=== PATIENT | male | born 1995 | race Caucasian/White ===

== ENCOUNTER 2025-05-21 09:55 | Emergency (ER) | payer MEDICAID, SELFPAY ==
[2025-05-21 09:57] VITALS: BMI 22.5
[2025-05-21 10:04] VITALS: BP 114/79; PULSE 122; RESP 21; TEMP 36.5; O2SAT 96; BMI 22.5
--- NOTE | 2025-05-21 10:15 | PD.EDADULT ---
ED General RME/HPI General Chief complaint: Skin/Abscess/Foreign Body Stated complaint: RASH Time Seen by Provider: 05/21/25 10:22 Arrival date/time: 05/21/25 09:55 CC: Itchy hives HPI ongoing for the past 2 weeks intermittent in nature they transition from 1 time to another over the last 36 hours they have got exposure to his buttocks and his anterior thighs as well as abdomen and back. Onset approximately 2 weeks ago has been seen by 2 urgent care center was thought it was ringworm and started on creams which have not helped and has started on Benadryl which also has not helped. Denies any exposure to new soaps colognes or new chemicals that is aware of currently is on vacation from [place]. Patient has no face or oral but does have scalp involvement. Patient has no allergies to medicines. Related Data Previous Rx's ?Medication ?Instructions ?Recorded famotidine 20 mg tablet 20 mg PO QDAY #20 tabs 05/21/25 prednisone 20 mg tablet See Taper PO BID #10 tabs 05/21/25 Allergies Allergy/AdvReac Type Severity Reaction Status Date / Time No Known Allergies Allergy Verified 05/21/25 09:56 Review of Systems Review of Systems Narrative Review of Systems: GEN: No fever, no chills, no weight loss EYES: No discharge, no visual changes, no pain HEENT: No ear pain, no congestion, no sore throat PULM: No shortness of breath, no cough, no congestion CV: No chest pain, no dyspnea on exertion, no palpitations GI: No nausea, no vomiting, no diarrhea, no pain, no constipation : No frequency, no urgency, no dysuria MUSC/SKEL: No joint pain, no back pain SKIN:hivesNo rash PSYCH: No hallucinations, no depression HEME/LYMPH: No easy bleeding or bruising tendencies NEURO: No weakness, no headache Past Medical History Social History SMOKING STATUS: Never smoker ED Exam Narrative Physical exam: [General: Not in any acute distress Head normocephalic HEENT: Eyes pupils are PERRLA EOMs are intact mouth pink moist membranes uvula is midline swallow symmetrical phonation is normal no stridor with auscultation. No lymphadenopathy all of the substance of HEENT are within acceptable limits Neck is supple nontender Chest equal chest rise nontender to palpation Respiratory: Clear to auscultation no wheezes crackles or rubs CV: Rate rhythm is regular no murmurs rubs or clicks Abdomen is soft nontender no masses positive bowel sounds all 4 quadrants Back: No CVA tenderness no spinous process tenderness from cervical spine thoracic and lumbar spine Skin: Nondescript irregular hives from 1 cm in diameter to 15 cm in diameter, surrounding erythema, multiple areas of macular erythema. Scalp involvement no face or circumoral involvement. Otherwise skin is intact no petechiae rash induration ulceration or crepitus Extremities: Moving all extremity against resistance cap refill less than 2 seconds neurosensory intact Neuro: Awake alert oriented x3 Glascow coma 15 no focal deficits] Course Course Course Narrative: Just prior to medication administration patient had a syncopal episode while getting up to urinate, no prior history of similar events states he just suddenly got lightheaded and dizzy became unresponsive for approximately 4 to 5 seconds and then responsive again at this time I elected to lay him flat started on IV him a liter of fluid pressures were noted to be in the 90s heart rate remained in the 60s. Laboratory results showed a mild leukocytosis of 14.6, no other significant electrolyte imbalances. At 1124 after liter fluid patient is sitting upright smiling and ambulating without complication pressures are now stabilized in the 110 range. I am comfortable giving the patient a Decadron and discharging home. The patient is in agreement with this plan. They agreed to take the medications. Quality Measures none Orders Category Date Time Status EKG (ED ONLY) *Do not use* NOW Care 05/21/25 10:40 Completed Saline [Insert IV] NOW Care 05/21/25 10:33 Active EKG (ED Only) Stat Exams 05/21/25 10:40 Draft CBC Stat Lab 05/21/25 10:36 Completed CMP [Comprehensive Metabolic Panel] Stat Lab 05/21/25 10:36 Completed Dexamethasone Inj [Decadron Inj] Med 05/21/25 10:15 Discontinued 10 mg IM X1 ONE Famotidine [Pepcid] Med 05/21/25 10:15 Discontinued 40 mg PO X1 ONE Sodium Chloride 0.9% 1000 ml [Ns] 1,000 ml Med 05/21/25 10:33 Active IV 999 mls/hr Vital Signs Vital signs: Vital Signs Temperature 97.7 F 05/21/25 10:04 Pulse Rate 122 H 05/21/25 10:04 Respiratory Rate 21 H 05/21/25 10:04 Blood Pressure 114/79 05/21/25 10:04 Pulse Oximetry (%) 96 05/21/25 10:04 Oxygen Delivery Method Room Air 05/21/25 10:04 Discharge Plan Plan Patient Disposition: HOME (Self Care) Prescriptions/Referrals Prescriptions/Med Rec: New prednisone 20 mg tablet See Taper PO BID Qty: 10 0RF Taper: Prednisone Taper 20 mg DAILY for 2 Days and 0 Hour 10 mg DAILY for 2 Days and 0 Hour 5 mg DAILY for 7 Days and 0 Hour famotidine 20 mg tablet 20 mg PO QDAY Qty: 20 0RF Problem List Clinical Impression: Angioedema, Syncope Patient/Caregiver Discharge Instructions Other Activity Instructions:: Continue to take the Benadryl 1 every 8 hours, take all the medications as prescribed, if there is a worsening of symptoms spite of medications return the emergency room immediately for further evaluation. Follow-up with your primary care provider, take a diary of how and when these hives change. If there are any hives that appear in your mouth or around your mouth return immediately to emergency room for evaluation. Please make sure you take all medications until completely gone. Education Materials: Causes of Syncope, ED Angioedema Print Language: Greek Stand Alone Forms: Dorothy Award Info., Work/School Release, Patient Portal Info Letter PA/GAIL Supervising Physician PA/GAIL Supervising Physician: Anders Wetzel ENP MDM Medication Administration(s) Medication Administration History Sodium Chloride (Ns) 1,000 mls @ 999 mls/hr IV .Q1H1M ONE Stop: 05/21/25 11:33 Last Admin: 05/21/25 10:39 Dose: 999 mls/hr Documented By: DMITRI Discontinued Medications Dexamethasone Sodium Phosphate (Dexamethasone Sod Phos Inj 10 Mg/Ml Vial) 10 mg IM X1 ONE Stop: 05/21/25 10:16 Last Admin: 05/21/25 10:47 Dose: Not Given Documented By: DMITRI Non-Admin Reason: Change of Condition Famotidine (Famotidine 20 Mg Tablet) 40 mg PO X1 ONE Stop: 05/21/25 10:16 Last Admin: 05/21/25 10:47 Dose: Not Given Documented By: DMITRI Non-Admin Reason: Change of Condition I suspect that is angioedema of unknown origin this been ongoing for the past 2 weeks, the patient has not had any medications other than Benadryl and fungal medication as it was initially diagnosed as ringworm. Patient confirms that this has been transitioning disappear in 12 hours and read a pill as well. Patient denies any of the typical changes such as new soaps colognes body washes shampoos new furniture. Patient is advised to take all medication as prescribed if is worsening of symptoms in spite of the medications return immediately to the emergency room for reevaluation. Diagnosis Differential diagnosis: Angioedema Dispositon Disposition: Discharge Home
[2025-05-21 10:39] VITALS: BP 98/64; PULSE 68; RESP 19; O2SAT 97
[2025-05-21] MEDS: SODIUM CHLORIDE 0.9% 1000 ML 1,000 ML 999 ML IV (10:39)
--- NOTE | 2025-05-21 10:40 | EKG_ITS ---
[facility] Test Date: 2025-05-21 Pat Name: GHAZAL KELLY Department: Room: - Gender: Male [employer]: : 1995 Requested By: Anders Dumont Order Number: [id number] Reading MD: Anders Dumont Measurements Intervals Sargents Rate: 65 P: 66 HI: 125 QRS: 79 QRSD: 94 T: 59 QT: 355 QTc: 370 Interpretive Statements SINUS RHYTHM EARLY REPOLARIZATION [ST ELEVATION WITH NORMALLY INFLECTED T-WAVE] No previous ECG available for comparison /[id number]/[email or web address]/[id number]
[2025-05-21 10:51] LABS: Basophils # (Auto) 0.0 Thou/mm3 (0.0-0.2); Basophils % (Auto) 0 % (0-2.5); Eosinophils # (Auto) 0.1 Thou/mm3 (0.0-0.5); Eosinophils % (Auto) 1 % (0-10); Hematocrit 49.9 % (41.0-53.0); Hemoglobin 16.8 g/dL (13.5-16.0); Immature Granulocytes Auto 0.08 Thou/mm3 (0.00-0.00); Lymphocytes # (Auto) 2.6 Thou/mm3 (1.0-4.8); Lymphocytes % (Auto) 18 % (10-50); Mean Corpuscular HGB Conc 33.7 g/dl (31.0-37.0); Mean Corpuscular Hemoglobin 30.6 pg (25.0-35.0); Mean Corpuscular Volume 91 fL (80-100); Monocytes # (Auto) 1.3 Thou/mm3 (0.0-0.8); Monocytes % (Auto) 9 % (0-12); Neutrophils # (Auto) 10.6 Thou/mm3 (1.8-7.7); Neutrophils % (Auto) 72 % (37-80); Nucleated Red Blood Cell # 0.00 Thou/mm3 (0.00-0.00); Nucleated Red Blood Cell % 0 /100 WBC (0); Platelet Count 394 Thou/mm3 (140-440); RDW Standard Deviation 41.1 fL (35.1-43.9); Red Blood Count 5.49 Miln/mm3 (4.50-5.90); White Blood Count 14.8 Thou/mm3 (3.8-10.6)
[2025-05-21 11:06] LABS: Alanine Aminotransferase 19 U/L (10-49); Albumin, Serum 4.3 gm/dL (3.5-5.0); Albumin/Globulin Ratio 1.5 (1.2-2.2); Alkaline Phosphatase 71 U/L (46-116); Anion Gap 11 (7-16); Aspartate Amino Transferase 24 U/L (0-34); BUN/Creatinine Ratio 15 Ratio (12-20); Bilirubin,Total 0.5 mg/dL (0.3-1.2); Blood Urea Nitrogen 17 mg/dL (9-23); Calcium 9.7 mg/dL (8.3-10.6); Calcium (Corrected) 9.7 mg/dL (8.5-10.1); Carbon Dioxide 24.8 mMol/L (20.0-31.0); Chloride 105 mMol/L (98-107); Creatinine (Component) 1.1 mg/dL (0.6-1.3); Estimated Creatinine Clearance 114.4 mL/min (>60); Globulin 2.8 gm/dL (2.3-3.5); Glucose 123 mg/dL (74-106); Osmolality,Calculated 283 (275-295); Potassium 3.7 mMol/L (3.4-5.1); Sodium 141 mMol/L (136-145); Total Protein 7.1 gm/dL (5.7-8.2); eGFR > 60 See Note
[2025-05-21] MEDS: DEXAMETHASONE SOD PHOS INJ 10 MG/ML VIAL IV (11:33)
== END 2025-05-21 12:06 | disposition home or self-care (01) ==
LOC: SERX 10:58
PROVIDERS: Registered Nurse General Practice; Emergency Provider Family Medicine
DX: T78.3XXA Angioneurotic edema, initial encounter (principal); R55 Syncope and collapse
CPT/HCPCS: 36415; 80053; 85025; 93005; 96361; 96374; 99283; J1100; J7030